=== PATIENT | male | born 1980 | race Caucasian/White ===

== ENCOUNTER 2024-01-19 14:44 | Emergency (ER) | payer OTHER, SELFPAY ==
[2024-01-19] VITALS (7 sets, daily range): BP systolic 130–164; BP diastolic 66–81; PULSE 73–81; RESP 16–26; TEMP 36.1–36.6; O2SAT 93–99; BMI 33.0
[2024-01-19] MEDS: morphine 8 MG/ML Syringe IV (15:01)
[2024-01-19] MEDS: Ondansetron 4 MG/2 ML Vial IV (15:02)
--- NOTE | 2024-01-19 15:09 | EDS_ITS ---
HPI History of Present Illness HPI Narrative: Dislocated right shoulder. Prior history. [id number]. Chief Complaint: Disclocation Informant: patient Occured/Mechanism Mechanism/Context: Yes injury and Yes blunt trauma Onset/Context/Timing Onset: Today and Hours Context: Sudden Onset Timing: Continuous Quality of Pain: Sharp Current Severity: Moderate Maximum Severity: Moderate Associated Symptoms Associated Symptoms: Positive for Loss of Funtion; Negative for Parasthesia or Weakness Narrative Narrative: Healthy 43-year-old male who is left-hand dominant. He was walking down steps on the step broke he fell through landed awkwardly between 2 steps and dislocated his right shoulder. He has a prior history of dislocating the same shoulder before an athletic event. No prior surgery. Denies any other injuries today. Prior similar symptoms: Yes Recent Illness/Hospitalization: No PFSH PFSH Medical History no medical history no medical history Allergy/AdvReac Type Severity Reaction Status Date / Time No Known Allergies Allergy Verified 01/19/24 14:48 Social History Smoking Status: Former smoker ROS ROS ED ROS Narrative Denies recent illness. Review of Systems ROS Unobtainable: Denies due to encephalopathy Constitutional Constitutional ED: Denies chills or fever(s) Eyes Eyes: Denies blurry vision ENT ENT ED: Denies ear pain Cardiovascular Cardiovascular: Denies chest pain Respiratory/Chest Respiratory/Chest: Denies cough or dyspnea Gastrointestinal Gastrointestinal: Denies abdominal pain Genitourinary Genitourinary ED: Denies dysuria or hematuria Musculoskeletal Musculoskeletal: Denies back pain, myalgias or neck pain Integumentary Denies abscess or Abrasions Neurologic Neurologic: Denies headache(s) Psychiatric Psychiatric: Denies anxiety or depression Endocrine Endocrinology: Denies cold intolerance Hematologic/Lymphatic Hematologic/Lymphatic: Denies easy bleeding, easy bruising, lymphadenopathy or other Allergic/Immunologic Allergic/Immunologic ED: Denies mouth swelling, tongue swelling or urticaria EXAM Physical Exam Narrative Exam Narrative: 43-year-old male vital signs stable afebrile. H EENT exam unremarkable atraumatic. Pupils round reactive light. No facial trauma or scalp trauma or tenderness. C-spine and neck nontender. Normal range of motion. Back nontender. Lungs clear. Heart regular rhythm no murmur. Chest wall and ribs nontender. Abdomen soft nontender. Pelvic girdle intact. Left upper extremity both lower extremities are nontender. No deformity. Normal strength. Right shoulder is dislocated. Unable to do range of motion. Tender. Distally the humerus, elbow, forearm, wrist and hand are nontender neurovascular intact. Normal [facility] strength and sensation. Neurologically is awake and alert. No focal motor deficits other than the dislocated right shoulder of course. Const Vital Signs: 01/19/24 14:46 Temperature 98 F Temperature Source Temporal Pulse Rate 76 Respiratory Rate 16 Blood Pressure 164/68 H Blood Pressure Mean 100 Pulse Ox 98 Oxygen Delivery Method Room Air Positive well nourished and well developed; Negative for obese, cachectic, contractures or unkempt General Appearance ED: well developed and NAD; Negative for unkempt, cachectic, contractures, cyanotic or diaphoretic Nutritional Appearance: Negative for cachectic or obese HEENT Reports moist mucous membranes normocephalic and atraumatic; Negative for trauma or tenderness Eyes PERRL and EOMs intact bilaterally General Eye ED: Negative for other Neck full ROM and supple General: Negative for tenderness Lymph Lymphatic: Negative for other Chest Wall inspection of chest normal and palpation of chest normal Chest: Negative for other Resp normal respiratory effort and clear to auscultation bilaterally Effort and Inspection: Negative for pain with movement Auscultation: Negative for rales, rhonchi, wheezes, diminished lung sounds or other Cardio regular rate, regular rhythm, S1 normal heart sound, S2 normal heart sound and no murmurs Rate: Negative for bradycardia or tachycardic Rhythm: Negative for abnormal rhythm GI non-tender, non-distended and no masses Inspection: Negative for abdominal distention Palpation: soft; Negative for tender, guarding or rebound tenderness present Back/Spine no CVA tenderness General Back: Negative for CVA tenderness Cervical Spine: Negative for cervical spine tenderness Thoracic Spine / Upper Back: Negative for thoracic spinal tenderness Lumbar Spine / Lower Back: Negative for lumbar spinal tenderness Extremity Negative for normal to inspection or full ROM Extremity Narrative: Dislocated right shoulder. Unable to do range of motion. Tender. Distally the right hand is neurovascularly intact. The forearm and elbow are nontender. General Extremety ED: Negative for edema General Extremity: Negative for edema Neuro oriented x3, CN's II-XII intact bilaterally, moves all extremities, no focal motor deficits and no sensory deficits noted Sensorium / Orientation: oriented to person, oriented to place and oriented to time; Negative for orientation impaired, lethargic, stuporous or other Motor Exam: strength 5/5 throughout Psych mental status grossly normal Appearance: Negative for unkempt Attitude: No agitated Mood & Affect: Negative for depressed, anxious or tearful Skin General Skin Exam: Negative for petechiae Lesions: no lesions Rashes: no rashes Trauma: no lacerations or abrasions; Negative for abrasion, laceration or puncture MDM MDM MDM Narrative Medical decision making narrative: 43-year-old male with dislocated right shoulder. Treated with IV morphine and Zofran. X-ray being obtained. Patient doing well currently at 3:39 PM post procedural sedation and right shoulder reduction. Patient doing well repeat exam for 15 to be discharged home. History & Record Review Discussion w/independent historian: Patient Radiography Diagnostic Testing: Right shoulder x-ray 2 views interpreted by myself shows a anetrior-inferior right shoulder dislocation. No fracture. Postreduction right shoulder x-ray, 2 views, interpreted by myself shows good reduction. Proper alignment. No fracture. Procedures Procedural Sedation 1 (Initial Baseline): Consent Signed: Yes Any Problems With Anesthesia: No You/Your family experience fever (hyperthermia) w/anesthesia: No Sedation medication: Propofol Dose: 80 Route: IV Total Moderate Sedation Units: 15 Maliampati Score: Class II ASA Classification: I Comment:: Patient with right shoulder dislocation. Preprocedure discussed with him procedural sedation and reduction. Patient was given 80 mg IV of propofol. Had good procedural sedation. Vital times and pulse ox stayed stable the entire time his pulse ox was above 95% on 2 L the entire time. With traction c ountertraction easily reduced the shoulder. It is very loose and can easily come back out. He was placed in a sling and swath. He tolerated it well. Post procedure he had a strong radial pulse in his right wrist. Currently the patient slowly waking up from the propofol. His is present in the room now. Discharge Plan Triage Chief Complaint: Disclocation ED Provider: Carlos Chong Dx/Rx/DC Orders Primary Care Provider: DIANN CONNER Referrals: [facility] Doctor,Out of [Non-Staff] -
--- NOTE | 2024-01-19 15:10 | RAD_ITS ---
STUDY: X-RAY - RIGHT SHOULDER REASON FOR EXAM: Male, 43 years old. Dislocated. TECHNIQUE: 2 views of the right shoulder. COMPARISON: None. FINDINGS: There is anterior-inferior dislocation of the right humeral head with respect to the glenoid. Normal acromioclavicular joint. Normal acromion. Normal humeral head and visualized proximal humerus. The soft tissue structures are unremarkable. There is no demonstrated fracture. Normal visualized pulmonary apex. RAD/Shoulder min 2 Views IMPRESSION: Anterior-inferior dislocation of the right humeral head with respect to the glenoid. Electronically Signed: Trung Carmona MD at 15:20 EST ,
--- NOTE | 2024-01-19 15:35 | RAD_ITS ---
STUDY: X-RAY - RIGHT SHOULDER, 01/19/2024, 3:36 PM REASON FOR EXAM: Male, 43 years old. Post reduction. TECHNIQUE: 2 views of the right shoulder. COMPARISON: Right shoulder radiographs dated 01/19/2024, 3:06 PM. FINDINGS: There is successful reduction of the previously seen anterior-inferior glenohumeral joint dislocation. Normal acromioclavicular joint. Normal acromion. Normal humeral head and visualized proximal humerus. The soft tissue structures are unremarkable. There is no demonstrated fracture. Normal visualized pulmonary apex. RAD/Shoulder min 2 Views IMPRESSION: Successful reduction of the previously seen anterior-inferior glenohumeral joint dislocation. Electronically Signed: Trung Carmona MD at 15:48 EST ,
[2024-01-19] MEDS: Propofol 200 MG/20 ML Vial 80 MG IV BOLUS (15:58)
== END 2024-01-19 16:57 | disposition home or self-care (01) ==
PROVIDERS: Emergency Provider Emergency Medicine; Visit Provider Emergency Medicine
DX: S43.004A Unspecified dislocation of right shoulder joint, initial encounter (principal); W10.9XXA Fall (on) (from) unspecified stairs and steps, initial encounter; Z87.891 Personal history of nicotine dependence
CPT/HCPCS: 23650; 73030; 96374; 96375; 99284; A4216; J2405